=== PATIENT | female | born 1940 | race Caucasian/White ===

== ENCOUNTER 2023-04-20 11:21 | Outpatient (CLI) | payer MEDICARE, SELFPAY ==
--- NOTE | 2023-04-20 11:32 | ECG_ITS ---
Measurements Intervals [place] Rate: 53 P: 67 RI: 196 QRS: 9 QRSD: 87 T: 29 QT: 418 QTc: 393 Interpretive Statements SINUS BRADYCARDIA CONSIDER INFERIOR INFARCT, AGE INDETERMINATE BASELINE ARTIFACT- I, II, III, AVR, AVL, AVF, V3-V6 ABNORMAL ECG NO PREVIOUS ECG AVAILABLE FOR COMPARISON Electronically Signed On 04-20-2023 12:47:44 COUNTY DEMONSTRATOR by Nick Solis D.O.
[2023-04-20 12:03] LABS: Hematocrit 39.2 % (37.0-47.0); Hemoglobin 12.5 g/dL (12.0-15.0); Mean Corpuscular HGB Conc 31.9 g/dl (32-36); Mean Corpuscular Hemoglobin 29.7 pg (26-34); Mean Corpuscular Volume 93.1 fl (80-100); Mean Platelet Volume 10.4 fl (7.4-10.4); Platelet Count Result 174 k/mm3 (150-375); Red Blood Count 4.21 M/mm3 (4.2-5.4); Red Cell Distribution Width 14.4 % (11.5-14.5); White Blood Count 8.5 K/mm3 (4.5-10.0)
[2023-04-20 12:07] LABS: Appearance Urine Clear (Clear); Bacteria Urine None Seen /hpf; Bilirubin Urine Negative (Negative); Blood Urine Negative (Negative); Color Urine Yellow (Yellow); Glucose Urine UA Negative (Negative); Ketones Urine Negative (Negative); Leukocyte Esterase Ur Trace LEU/UL (Negative); Nitrate Urine Negative (Negative); Non Pathogenic Casts 0-2; Protein Urine Negative (Negative); RBC Urine 0-2 /hpf (0-2); Specific Grav Ur 1.012 (1.001-1.035); Squamous Epithelial Cell Urine None seen /hpf (Few); Urobilinogen Urine 0.2 mg/dL (<2.0); WBC Urine 0-5 /hpf
[2023-04-20 12:08] LABS: Add Urine Microscopic? YES
[2023-04-20 12:14] LABS: Prothrombin Time 13.3 Seconds (11.1-14.7)
[2023-04-20 12:15] LABS: Partial Thromboplastin Time 31.1 SECONDS (22.3-36.8)
[2023-04-20 12:19] LABS: Anion Gap 5 mmol/L (8-16); Blood Urea Nitrogen 20 mg/dL (7-17); Calcium 9.6 mg/dL (8.4-10.2); Carbon Dioxide 34 mmol/L (22-30); Chloride 101 mmol/L (98-107); Estimated Glomerular Filt Rate 60; Glucose 123 mg/dL (65-110); Sodium 140 mmol/L (137-145)
== END 2023-04-20 11:22 | disposition home or self-care (01) ==
LOC: ANHSURGERY 11:26
PROVIDERS: PCP Internal Medicine; Visit Provider Neurological Surgery
DX: Z01.818 Encounter for other preprocedural examination (principal); I10 Essential (primary) hypertension; M48.00 Spinal stenosis, site unspecified; R93.1 Abnormal findings on diagnostic imaging of heart and coronary circulation
CPT/HCPCS: 36415; 80048; 81001; 85027; 85610; 85730; 93005

== ENCOUNTER 2023-04-27 14:12 | Observation (INO) | payer MEDICARE, SELFPAY ==
[2023-04-15 09:33] VITALS: BMI 30.2
--- NOTE | 2023-04-15 09:49 | PC.NURSE ---
PRE-OP INSTRUCTIONS, PLEASE READ CAREFULLY Report to the Outpatient Waiting Room, entrance under the green pavilion located off [facility], at time _0800_ on date _04/26/23_. Planned Procedure Time: _1000_. PACK A SMALL OVERNIGHT BAG AND LEAVE IN THE CAR Time changes happen often and if your time is changed the preop area will call you the afternoon before. - You and your visitor will be asked to self-screen and do not enter if you have any COVID symptoms. - A mask is optional within the hospital at this time. -VISITING HOURS 8AM-8PM Patients may have clear liquids (water, carbonated beverages, clear teas, apple juice) until 3 hours prior to surgery with a maximum of 20 ounces. - No food from midnight until time of surgery Take the following medications with a SIP of water the morning of surgery: _LEVOTHYROXINE, SERTRALINE_ DO NOT STOP ANY OF YOUR OTHER PRESCRIPTION MEDICATIONS PRIOR TO SURGERY ?EXCEPT THE FOLLOWING Medications to discontinue per ANESTHESIA - _VITAMINS & SUPPLEMENTS 3 DAYS PRIOR TO SURGERY, Date to take last dose 04/22/23_ Please no make-up, nail slovak, hairspray, perfume, deodorant, or body powder the day of surgery. No jewelry (including any body piercings) or valuables the day of surgery, leave them at home. Please take a shower or bath the night before, or the morning of, surgery with an antibacterial soap. Wear comfortable, loose fitting clothing. - Jewelry must be removed prior to entering the operating room. Rings and piercings that are not removed may be cut off. - The hospital will not accept responsibility for valuables. - Please leave all valuables, including medications, at home the day of surgery. If you are going home after surgery, a licensed compactor driver must drive you home. - NO public transportation without another adult if you receive anesthesia. - We recommend that an adult stay with you for 24 hours following discharge. - We also recommend that you do not drive, make important decision, drink alcoholic beverages, or take any drugs that were not prescribed by your health care provider for at least 24 hours after your discharge time. Follow any additional instructions given to you from your surgeon. If you or anyone in your household have experienced Covid symptoms in the past week, please notify your surgeon or the nurse liaison at the phone number below for possible testing. Telephone instructions given to _PATIENT_and asked if any additional questions and then verbalized understanding. Patient advised to call surgeon office or pre surgery nurse liaison [phone] if any additional questions.
[2023-04-26] VITALS (16 sets, daily range): BP systolic 113–191; BP diastolic 48–81; PULSE 63–84; RESP 10–18; TEMP 36.4–37.1; O2SAT 93–100
[2023-04-26] MEDS: LACTATED RINGERS 1,000 ML 30 ML IV CONT (08:20)
--- NOTE | 2023-04-26 09:47 | WPDANESEPPF ---
Anes - Initial Pre Proc Eval Procedure: Operation Date: 04/26/23 10:00 Proposed Procedures p L1-5 Lumbar Laminectomy - Trent Forrester MD Date/Time: 04/26/23 09:47 Surgeon: Trent Forrester MD Pre Op Diagnosis: lumbar stenosis L1-5 Patient Data Age: 82 Gender: F Height: 1.6 m Weight: 78.6 kg Last Vital Signs Temp 98.1 F 04/26/23 07:54 Pulse 63 04/26/23 07:54 Resp 18 04/26/23 07:54 BP 175/58 H 04/26/23 07:54 Pulse Ox 97 04/26/23 07:54 O2 Del Method Room Air 04/26/23 07:54 Allergies Allergy/AdvReac Type Severity Reaction Status Date / Time Penicillins Allergy Unknown Rash Verified 04/26/23 08:00 Home Medications Medication Instructions Recorded Confirmed Type atorvastatin 40 mg tablet 40 mg PO DAILY 01/10/23 04/26/23 History biotin 10,000 mcg capsule 10,000 mcg PO DAILY 01/10/23 04/26/23 History cholecalciferol (vitamin D3) 125 125 mcg PO DAILY 01/10/23 04/26/23 History mcg (5,000 unit) capsule furosemide 20 mg tablet 20 mg PO QAM 01/10/23 04/26/23 History levothyroxine 75 mcg capsule 75 mcg PO DAILY 01/10/23 04/26/23 History losartan 100 mg tablet 100 mg PO DAILY 01/10/23 04/26/23 History omeprazole 40 mg capsule,delayed 40 mg PO DAILY 01/10/23 04/26/23 History release sertraline 100 mg tablet 100 mg PO DAILY 01/10/23 04/26/23 History vitamin B complex 1 cap DAILY 04/15/23 04/26/23 History aspirin 81 mg tablet 81 mg PO DAILY 04/26/23 04/26/23 History Patient hx anesthesia problems: none Family hx anesthesia problems: none Results Review: All pre-operative results and documents have been reviewed as part of the pre-operative evaluation. [facility] Past Medical History Medical History Spinal stenosis Family History Family History Other Family history of heart disease in male family member before age 55 Family history of malignant neoplasm Social History Social History (Updated 01/10/23 @ 13:35 by JACKI Lovell) Smoking status: Never smoker Second hand tobacco smoke exposure: No Alcohol intake: never Substance use: never Substance use type: does not use Lack of Transportation: No Lack of Food: Never True Current Housing: I Have Housing Concerned About Future Housing: No Difficulty Paying Gas/Electric Bills: No Difficulty Paying for Meds: No Currently Unemployed: No Education: Trade/Vocational Certificate Difficulty w/ Childcare or Family Care: No Living arrangements: with family Spiritual care concerns: No Anes - Eval Final PreProcedure Day of Procedure 04/26/23 09:47 Patient weight: obese Heart: regular rate and rhythm Lungs: clear to auscultation Airway: Mallampati scale class II Neurological: alert and oriented Last oral intake: >/= 8 hours ASA classification: III Emergent: no Anesthetic plan: proceed Anesthesia type and monitoring: general ETT and standard monitoring Results Review: All pre-operative results and documents have been reviewed as part of the pre-operative evaluation. Informed Consent: The patient's anesthetic plan and its attendant risks and benefits were discussed with the patient/family/POA. Questions were solicited and answers provided to the satisfaction of the patient/family/POA.
--- NOTE | 2023-04-26 10:51 | PM.IMHP ---
H&P: HPI History of Present Illness Date/Time: 04/26/23 10:51 Chief Complaint: Neurogenic claudication Narrative: Ginger is an 82-year-old female with back and leg pain of a claudicatory nature. She is found to have stenosis at L1-5 and presents now for decompression. She has not changed appreciably since we last saw her. She does not have bowel or bladder difficulty or other constitutional problems. She is not having specific muscle group weakness or dermatomal numbness. Review of Systems Review of Systems: Patient denies shortness of breath, cough, fever, chills, nausea, vomiting, weight loss, waking, chest pain, dysuria. She has back and leg pain with claudicatory nature as above. Review of systems is otherwise negative on 12 systems except as noted elsewhere. [facility] Past Medical History Medical History Spinal stenosis Family History Family History Other Family history of heart disease in male family member before age 55 Family history of malignant neoplasm Social History Social History (Updated 01/10/23 @ 13:35 by JACKI Lovell) Smoking status: Never smoker Second hand tobacco smoke exposure: No Alcohol intake: never Substance use: never Substance use type: does not use Lack of Transportation: No Lack of Food: Never True Current Housing: I Have Housing Concerned About Future Housing: No Difficulty Paying Gas/Electric Bills: No Difficulty Paying for Meds: No Currently Unemployed: No Education: Trade/Vocational Certificate Difficulty w/ Childcare or Family Care: No Living arrangements: with family Spiritual care concerns: No Meds Home Medications and Allergies Home Medications Medication Instructions Recorded Confirmed Type atorvastatin 40 mg tablet 40 mg PO DAILY 01/10/23 04/26/23 History biotin 10,000 mcg capsule 10,000 mcg PO DAILY 01/10/23 04/26/23 History cholecalciferol (vitamin D3) 125 125 mcg PO DAILY 01/10/23 04/26/23 History mcg (5,000 unit) capsule furosemide 20 mg tablet 20 mg PO QAM 01/10/23 04/26/23 History levothyroxine 75 mcg capsule 75 mcg PO DAILY 01/10/23 04/26/23 History losartan 100 mg tablet 100 mg PO DAILY 01/10/23 04/26/23 History omeprazole 40 mg capsule,delayed 40 mg PO DAILY 01/10/23 04/26/23 History release sertraline 100 mg tablet 100 mg PO DAILY 01/10/23 04/26/23 History vitamin B complex 1 cap DAILY 04/15/23 04/26/23 History aspirin 81 mg tablet 81 mg PO DAILY 04/26/23 04/26/23 History Allergies Allergy/AdvReac Type Severity Reaction Status Date / Time Penicillins Allergy Unknown Rash Verified 04/26/23 08:00 Vital Signs Vital Signs - 24 hr 04/26/23 07:54 Temperature 98.1 F Pulse Rate 63 Respiratory Rate 18 Blood Pressure 175/58 H Pulse Oximetry 97 Oxygen Delivery Room Air Exam Narrative: Strength is 5/5 in all muscle groups of the bilateral lower extremities. Sensation is intact to light touch throughout the lower extremities. Breathing is nonlabored Regular rate and rhythm Assessment and Plan Assessment and plan (1) Spinal stenosis of lumbar region with neurogenic claudication: Code(s): M48.062 - Spinal stenosis, lumbar region with neurogenic claudication Status: Acute Assessment and Plan: Ginger is an 82-year-old female with neurogenic claudication secondary to spinal stenosis who presents for L1-2 5 laminectomy. I described to her again that operation, its risks, potential benefits, the operative and postoperative course in detail and answered all her questions personally. She indicates understanding and elects to proceed with that operation.
--- NOTE | 2023-04-26 10:55 | WPDHPUPDATE1 ---
History and Physical Update Update Date/Time: 04/26/23 10:55 History and Physical has been reviewed, including an updated exam of the patient. There are NO changes in the patient's condition. Risks, benefits, and alternatives have been discussed and questions answered. Patient agrees to proceed with procedure.
[2023-04-26] MEDS: ceFAZolin 2 GM/D5W 50 ML 2 GM/50 ML BAG IVPB (11:11)
[2023-04-26] MEDS: LIDO 1%/EPINEPHRINE 1:100,000 20 ML VIAL 10 ML INFILTRATE (11:34)
--- NOTE | 2023-04-26 13:23 | P.OP_ITS ---
Procedure Note - Detailed Date of Procedure 04/26/23 Pre-op Diagnosis lumbar stenosis L1-5 Post-op Diagnosis Same Procedure Performed L1-5 laminectomy Surgeon Trent Forrester MD Anesthesia General Description of Procedure the patient was brought to the operating room in the supine position, sedated, intubated and placed under general anesthesia in routine fashion. She was then turned into the prone position on a Suresh frame. The of operation her back was examined, marked for incision, prepped and draped in routine sterile fashion. Incision was marked over the L1 through 5 spinous processes in the midline. This area was injected with 0.5% lidocaine with [id number] epinephrine. Intravenous antibiotics were given prior to incision. Incision was made with a 10 blade scalpel down to the lumbodorsal fascia. A subperiosteal dissection of the muscle soft tissue with the spinous process and lamina at L1-5 was performed with a subperiosteal elevator and Bovie cautery. A verifying x-rays obtained to verify the level of operation. Feel 1 through the top of L5 spinous processes were removed with a Lisa rongeur. A Midas Sukhjinder drill with an [place] bit was used to remove lamina in the midline to the soft contents of the canal were encountered. Curved curette was used to define a plane with the dura. Kerrison punches and curved curettes were used to remove bone and ligament in the midline exposing the dura. In the lateral recess a curved curette define the plane. Again Kerrison punches were used to remove overgrown bone ligament in the lateral recess from superior to inferior. These maneuvers were performed to each pedicle could be felt and decompression of the lateral recess was confirmed by passing a dental instrument. The wound was then copiously irrigated with bacitracin irrigation all bleeding stopped with bipolar and Bovie cautery and Gelfoam thrombin powder. The wound was then closed in layered fashion with 2-0 Vicryl interrupted sutures in the lumbodorsal fascia and Selvin's layer. 3-0 Vicryl buried interrupted sutures were placed in the dermis and skin was closed with running 4-0 Monocryl subcuticular stitch and dressed with Dermabond. a medium Hemovac drain had been left in the subfascial position and carried out to the inferior and right of the incision prior to closure. The patient was loud wake up in the operating room and was taken to recovery room in stable condition. There were no immediate complications of this operation. All counts were reported correct in the case. Blood loss was 150 cc. The patient was neurologically at her baseline postoperatively. CPT codes: 94907, 24506 x4 Estimated Blood Loss 150 IV Fluids 1,000 Drains Yes Complications None Condition Stable Disposition PACU [facility] Billing Surgery - Charge Forward: Surgery Billing
[2023-04-26] MEDS: fentaNYL CITRATE INJ (*CRX) 100 MCG/2 ML VIAL 25 MCG IV PUSH ×4 (14:09→14:48)
--- NOTE | 2023-04-26 14:30 | SUR.PHASEI ---
Patient meets PACU discharge criteria, unit bed unavailable at this time. Patient placed in extended recovery status.
--- NOTE | 2023-04-26 16:45 | PC.NURSE ---
This patient, Farhana Julien, was admitted to [facility] Surg Room 304-02. Patient/family oriented to hospital policies and general routines including ID bracelet, bed and alarms, visiting hours, pain management, procedures, bathroom and other care routines, personal items, smoking policy, room service/diet, and visiting hours. Information on how to activate the Rapid Response Team has been discussed. Patient/Family are encouraged to report perceived risks to care and to ask questions if they do not understand what they are told or what they should do.
[2023-04-26] MEDS: HYDROcodone/acetaminophen (*CRX) 5-325 MG TABLET 1 TAB PO (17:22)
[2023-04-26] MEDS: ceFAZolin 1 GM/NS 50 ML 1 GM/50 ML BAG IVPB (19:13)
[2023-04-26] MEDS: HYDROcodone/acetaminophen (*CRX) 10-325 MG TABLET 1 TAB PO (21:38)
[2023-04-26] MEDS: PANTOPRAZOLE 40 MG TABLET PO (21:39)
[2023-04-26] MEDS: DOCUSATE SODIUM 100 MG CAPSULE PO (21:39)
[2023-04-27] VITALS: BP 106/58; PULSE 85; RESP 14; TEMP 36.8; O2SAT 96
--- NOTE | ~2023-04-27 | XR_ITS ---
EXAMINATION: XR fluoroscopy no charge DATE: 04/26/2023 11:50 CUSTOMER SERVICE COORDINATOR INDICATION: LAMINECTOMY . TECHNIQUE: A single fluoroscopic image of the lumbar spine were obtained during laminectomy performed by the surgeon. I was not present in the operating room. Fluoroscopy exposure time was 1.5 seconds. Air Kerma 0.9822 mGy. DAP 0.0195 mGym2. COMPARISON: None FINDINGS: Multilevel degenerative disc disease. Skin retractors over the posterior soft tissues. A probe identi fies posterior elements at the level of L4. IMPRESSION: Fluoroscopic documentation of laminectomy. Please refer to the operative note for complete procedural details . Reviewed, dictated and finalized at location K. OMER SERVICE COORDINATOR IMPRESSION: Fluoroscopic documentation of laminectomy. Please refer to the operative note f or complete procedural details .
[2023-04-27] MEDS: ceFAZolin 1 GM/NS 50 ML 1 GM/50 ML BAG IVPB ×3 (02:51→18:24)
[2023-04-27 04:00] VITALS: BP 106/55; PULSE 79; RESP 16; TEMP 36.8; O2SAT 98
[2023-04-27] MEDS: LEVOTHYROXINE SODIUM 75 MCG TABLET PO (05:29)
[2023-04-27 08:00] VITALS: BP 126/64; PULSE 87; RESP 16; TEMP 36.9; O2SAT 98
--- NOTE | 2023-04-27 08:04 | WPDANESPN ---
Anes - Prog Note Post-Op Date/Time: 04/27/23 08:04 Cardiovascular status: normal Respiratory status: normal Airway patency: baseline Mental status: baseline Post-Op hydration status: normal Vital Signs: Last Vital Signs Temp 36.8 C 04/27/23 04:00 Pulse 79 04/27/23 04:00 Resp 16 04/27/23 04:00 BP 106/55 L 04/27/23 04:00 Pulse Ox 98 04/27/23 04:00 O2 Del Method Room Air 04/26/23 20:00 O2 Flow Rate 8 04/26/23 13:30 Pain Score (VAS): 0 I/O: Intake & Output 04/26/23 04/27/23 04/27/23 23:59 07:59 15:59 Intake Total 510 50 Output Total 150 Balance 360 50 Post-procedural complaints: none Patient Feedback: Patient satisfied with anesthetic care.
[2023-04-27] MEDS: HYDROcodone/acetaminophen (*CRX) 10-325 MG TABLET 1 TAB PO (08:19)
[2023-04-27] MEDS: ONDANSETRON INJ 4 MG/2 ML VIAL IV PUSH (08:30)
[2023-04-27 11:59] VITALS: BP 121/62; PULSE 60; RESP 16; TEMP 36.7; O2SAT 97
--- NOTE | 2023-04-27 14:03 | WPDNEUROSGPN ---
Progress Note: A&P Assessment and Plan (1) Spinal stenosis of lumbar region with neurogenic claudication: Code(s): M48.062 - Spinal stenosis, lumbar region with neurogenic claudication Status: Acute Assessment and Plan: The patient is POD#2 s/p L1-5 laminectomies for decompression The patient is having post-op n/v, difficulty keeping liquids and pain pill down Plan: -start Reglan for breakthrough antiemetic - Continue drain through today - continue pt/ot and monitor progress Dispo planning: patient plans to discharge home with family support, suspect she'll be more ready for this on . Subjective Date/time seen: 04/27/23 14:03 Interval history: Having nausea and emesis, unable to take pain meds. c/o expected low back pain, no LE pain/symptoms. Voiding wo difficulty. Exam Const: Other: GENERAL: The patient appears well-nourished, well-developed, and in no acute distress SKIN: lumbar incision is clean / dry / small dressing overlying inferior pole of incision - no active drainage NEUROLOGIC EXAMINATION: Mental status: Patient is awake, alert, and oriented to person place and time. Speech is clear and fluent. Motor: Strength is 5/5 in bilateral lower extremities Sensory: Sensation is intact to light touch throughout bilateral lower extremities. drain output: 150/24hr Objective Data Vital Signs Vital Signs: Vital Signs - 24 hr 04/26/23 14:15 04/26/23 14:30 04/26/23 15:00 Temperature Pulse Rate 64 64 67 Respiratory Rate 16 14 18 Blood Pressure 129/52 L 123/71 126/50 L Pulse Oximetry 93 96 93 Oxygen Delivery Room Air Room Air Room Air 04/26/23 15:30 04/26/23 16:00 04/26/23 16:30 Temperature Pulse Rate 66 67 67 Respiratory Rate 12 16 16 Blood Pressure 131/48 L 113/55 L 131/64 Pulse Oximetry 93 94 94 Oxygen Delivery Room Air Room Air Room Air 04/26/23 16:45 04/26/23 17:00 04/26/23 17:30 Temperature 98.5 F 98.8 F 98.0 F Pulse Rate 70 72 80 Respiratory Rate 14 16 16 Blood Pressure 127/81 133/60 121/59 L Pulse Oximetry 95 96 96 Oxygen Delivery 04/26/23 18:30 04/26/23 17:00 04/26/23 20:00 Temperature 98.4 F 97.6 F Pulse Rate 76 84 Respiratory Rate 16 16 Blood Pressure 122/63 119/66 Pulse Oximetry 97 95 Oxygen Delivery Room Air 04/26/23 20:00 04/27/23 00:00 04/27/23 04:00 Temperature 98.3 F 98.2 F Pulse Rate 85 79 Respiratory Rate 14 16 Blood Pressure 106/58 L 106/55 L Pulse Oximetry 95 96 98 Oxygen Delivery Room Air 04/27/23 08:05 04/27/23 08:00 04/27/23 11:59 Temperature 98.5 F 98.0 F Pulse Rate 87 60 Respiratory Rate 16 16 Blood Pressure 126/64 121/62 Pulse Oximetry 98 97 Oxygen Delivery Room Air Intake/Output Intake/Output: Intake & Output 04/24/23 04/25/23 04/26/23 04/27/23 23:59 23:59 23:59 23:59 Intake Total 1560 110 Output Total 150 Balance 1410 110 Meds/Results Medications: Active Medications Generic Name Dose Route Start Last Admin Trade Name Freq PRN Reason Stop Dose Admin Hydrocodone Bitart/Acetaminophen 1 tab 04/26/23 16:31 04/26/23 17:22 Hydrocodone/Acetaminophen (*Crx) 5-325 Mg Tablet PO 1 tab Q4H PRN Administration Mild Pain (1-3) Hydrocodone Bitart/Acetaminophen 1 tab 04/26/23 16:31 04/27/23 08:19 Hydrocodone/Acetaminophen (*Crx) 10-325 Mg Tablet PO 1 tab Q4H PRN Administration Moderate Pain (4-6) Al Hydrox/Mg Hydrox/Simethicone 20 ml 04/26/23 16:31 Mag Hydrox/Al Hydrox/Simeth 30 Ml Udc PO Q4H PRN Indigestion/Heartburn Atorvastatin Calcium 40 mg 04/27/23 09:00 04/27/23 08:22 Atorvastatin 40 Mg Tablet PO 40 mg DAILY LIEN Administration Bisacodyl 10 mg 04/26/23 16:31 Bisacodyl 10 Mg Suppository RECTAL DAILY PRN Constipation Cyclobenzaprine HCl 10 mg 04/26/23 16:31 Cyclobenzaprine Hcl 10 Mg Tablet PO TID PRN Muscle Spasms Docusate Sodium 100 mg 0
[2023-04-27] MEDS: METOCLOPRAMIDE HCL INJ 10 MG/2 ML VIAL IV PUSH (14:29)
[2023-04-27 16:00] VITALS: BP 111/49; PULSE 90; RESP 20; TEMP 36.5; O2SAT 99
[2023-04-27] MEDS: PANTOPRAZOLE 40 MG TABLET PO (17:14)
[2023-04-27 22:15] VITALS: BP 128/55; PULSE 86; RESP 16; TEMP 36.6; O2SAT 95
[2023-04-28 01:17] VITALS: BP 143/55; PULSE 87; RESP 18; TEMP 36.8; O2SAT 97
[2023-04-28] MEDS: ceFAZolin 1 GM/NS 50 ML 1 GM/50 ML BAG IVPB ×2 (04:00→11:03)
[2023-04-28] MEDS: LEVOTHYROXINE SODIUM 75 MCG TABLET PO (05:13)
[2023-04-28 06:59] VITALS: BP 141/68; PULSE 86; RESP 16; TEMP 36.9; O2SAT 95
[2023-04-28] MEDS: CHOLECALCIFEROL 1,000 UNITS TABLET 5000 UNITS PO (08:19)
[2023-04-28] MEDS: CYCLOBENZAPRINE HCL 10 MG TABLET PO (08:19)
[2023-04-28] MEDS: LOSARTAN POTASSIUM 100 MG TABLET PO (08:20)
[2023-04-28] MEDS: DOCUSATE SODIUM 100 MG CAPSULE PO (08:20)
[2023-04-28] MEDS: FUROSEMIDE 20 MG TABLET PO (08:20)
[2023-04-28] MEDS: SERTRALINE HCL 50 MG TABLET 100 MG PO (08:20)
[2023-04-28] MEDS: ATORVASTATIN 40 MG TABLET PO (08:20)
[2023-04-28] MEDS: PANTOPRAZOLE 40 MG TABLET PO (08:20)
[2023-04-28 14:00] VITALS: BP 120/52; PULSE 88; RESP 16; TEMP 36.8; O2SAT 91
--- NOTE | 2023-04-28 17:10 | WPDNEUROSGPN ---
Progress Note: A&P Assessment and Plan (1) Status post lumbar laminectomy: Code(s): Z98.890 - Other specified postprocedural states Status: Acute Plan -Discharge home today -Wound care instructions and restrictions reviewed at bedside -Follow up with Dr. Forrester in clinic Subjective Date/time seen: 04/28/23 14:30 Interval history: States she is not doing well because she feels tired and isn't interested in eating. She is not having much back pain, and the right leg pain she had prior to surgery seems resolved. She would like to go home today Review of Systems Review of Systems: All systems reviewed & are unremarkable except as noted in HPI and below Exam Narrative: Incision c/d/i Full strength in lower extremities Sensation intact to light touch Objective Data Vital Signs Vital Signs: Vital Signs - 24 hr 04/27/23 22:15 04/28/23 01:17 04/28/23 06:59 Temperature 97.8 F 98.2 F 98.5 F Pulse Rate 86 87 86 Respiratory Rate 16 18 16 Blood Pressure 128/55 L 143/55 H 141/68 H Pulse Oximetry 95 97 95 Oxygen Delivery 04/28/23 08:20 04/28/23 14:00 Temperature 98.3 F Pulse Rate 88 Respiratory Rate 16 Blood Pressure 120/52 L Pulse Oximetry 91 Oxygen Delivery Room Air Intake/Output Intake/Output: Intake & Output 04/25/23 04/26/23 04/27/23 04/28/23 23:59 23:59 23:59 23:59 Intake Total 1560 450 340 Output Total 150 Balance 1410 450 340 Meds/Results Radiology Results: ITS Impressions Fluoroscopy 04/26/23 16:13 IMPRESSION: Fluoroscopic documentation of laminectomy. Please refer to the operative note for complete procedural details .
--- NOTE | 2023-06-06 11:59 | PM.DS ---
DS: Admitting Diagnosis Discharge Date 04/28/23 Admitting Diagnosis Lumbar stenosis with neurogenic claudication DS: Discharge Diagnosis Discharge Diagnosis Plan 1)lumbar stenosis with neurogenic claudication 2)s/p L1-5 laminectomies for decompression DS: Summary Hospital Course Hospital Course: The patient was admitted for the above diagnosis and procedure. The PC to her went well without any reported complications and the patient recovered well was transferred to the regular floor after her surgery. For the next 2 days her activity was advanced and pain control was optimized. She did well without any complications and therefore was discharged to home with family support. See electronic record for further detailed hospital stay. She did not require blood transfusion And her neurologic exam remained intact/ stable from preoperative. Status at Discharge Functional status at discharge: uses cane/walker Overall status at discharge: patient is progressing back to baseline Time Spent with Patient Time attestation: Total time spent providing and/or coordinating discharge services: Time spent: Less than 30 minutes Exam Narrative: Incision c/d/i Full strength in lower extremities Sensation intact to light touch Discharge Plan Discharge Attending physician on discharge: Trent Forrester Consulting providers: Jauqelin Childers; Triston Pretyt; Jacques Hardy; Margaux Herzog; Taylor Kruse Discharging Clinician: Jaquelin Childers Patient Disposition: Home, Self-Care Activity: other - see discharge instructions Diet: as tolerated Wound Care Instructions: follow printed instructions Discharge Instructions: Discharge Instructions Procedure: Lumbar laminectomy Your doctor has partially removed one or more lamina from your back (lumbar spine), to remove pressure from the nerve roots. Here are some instructions to follow upon discharge from the hospital to help in your recovery. Wound Care: You may shower and get your incision wet starting on post-operative day 2 (Tuesday, August 27). You may use soap and water to clean your incision. Lightly dab the incision dry. Do not apply any ointments, creams, or lotions to the incision. Do not take baths or sit in a hot tub or pool for at least 4 weeks after surgery or until approved by your doctor. If you have stitches in place, these will be removed at your first post-operative appointment. If you have steristrips, these will fall off on their own in about 7-10 days. You may remove them if they are still in place 10 days after surgery. If you have skin glue, this will typically dissolve on its own. Activity: Until released by your doctor, you should not return to work. You should rest at home and let your body heal. Taking short walks is encouraged, but avoid strenuous exercise. Do not jog, run, bicycle, lift weights, or participate in any other exercises unless specifically allowed by your doctor. Most importantly, avoid lifting objects heavier than about 10 lbs (or carton of milk) as this places a strain on your back. Avoid twisting and bending motions. Avoid prolonged sitting. Where possible, avoid household activities that involve lifting and/or bending such as laundry, grocery shopping, and childcare. Try to arrange for help from friends and family for these activities while your back heals. You should not drive for a few days and must be off narcotic pain medications prior to driving. DO NOT SMOKE TOBACCO. Smoking has been proven to interfere with the normal healing of the bones in your back. Smoking will dramatically reduce the success rate of your surgery. Your doctor can prescribe a patch to help you stop smoking if you would like. Diet: You can return to your usual diet, unless instructed otherwise by your doctor. Medications: You should resume taking all of your normal medications, unless instructed otherwise by your doctor.
== END 2023-04-28 15:11 | disposition home or self-care (01) ==
LOC: ANHSURGERY 14:15 → ANH3MEDSUR 14:15
PROVIDERS: Admitting Provider Neurological Surgery; PCP Internal Medicine; Visit Provider Neurological Surgery
PROC: (CPT 63005; principal; 2023-04-26 10:00)
DX: M48.062 Spinal stenosis, lumbar region with neurogenic claudication (principal); E66.9 Obesity, unspecified; Z68.30 Body mass index [BMI] 30.0-30.9, adult; Z79.82 Long term (current) use of aspirin; Z79.899 Other long term (current) drug therapy
CPT/HCPCS: 63047; 63048 ×3; 36415; 80048; 81001; 85027; 85610; 85730; 93005; 97116; 97161; 97165; 97530; 97535; 99199; A9270; G0378; G0379; J0690; J2405; J2765; J3010; J7120